=== PATIENT | female | born 1995 ===

== ENCOUNTER 2021-07-30 14:05 | Emergency (ER) | payer BC, OTHER | END 2021-07-30 15:10 | disposition home or self-care (01) | LOC: LL.ED 14:05 | DX: S89.91XA Unspecified injury of right lower leg, initial encounter (principal); X50.0XXA Overexertion from strenuous movement or load, initial encounter; Y93.89 Activity, other specified; Y93.02 Activity, running | CPT/HCPCS: 73562-RT; 99283; 99283-25 ==